=== PATIENT | female | born 1940 | race Caucasian/White ===

== ENCOUNTER 2017-06-17 09:00 | Emergency (ER) | payer OTHER ==
[~2017-06-17] VITALS: Ht 152.4 cm; Wt 62.6 kg
[~2017-06-17 09:00] MED LIST: ACID CONTROL150 MG; ADULT ASPIRIN81 MG; ANASTROZOLE1 MG; ATENOLOL25 MG; LOSARTAN-HCTZ1 EAC1; NORVASC5 MG; OSTERA TABLET1 EACH; PRAVASTATIN SOD40 MG; PRILOSEC40 MG
[2017-06-17] MEDS ORDERED: ANASTROZOLE1 MG (09:19)
[2017-06-17] MEDS ORDERED: PLAVIX75 MG (09:19)
[2017-06-17] MEDS ORDERED: ISOSORBIDE DINIT5 MG (09:20)
[2017-06-17] MEDS ORDERED: TOPROL XL25 MG (09:20)
[2017-06-17] MEDS ORDERED: LIPITOR40 MG (10:46)
[2017-06-17] MEDS ORDERED: RANEXA500 MG (10:46)
[2017-06-17] MEDS ORDERED: RANEXA500 MG PO (20:23)
[2017-06-17] MEDS ORDERED: ANASTROZOLE1 MG PO (20:23)
[2017-06-17] MEDS ORDERED: HYZAAR 100-12.1 EACH PO (20:23)
[2017-06-17] MEDS ORDERED: PLAVIX75 MG PO (20:23)
[2017-06-17] MEDS ORDERED: METOPROLOL SUCC25 MG PO (20:23)
[2017-06-17] MEDS ORDERED: ASPIRIN81 MG PO (20:23)
[2017-06-17] MEDS ORDERED: LIPITOR40 MG PO (20:23)
[2017-06-17] MEDS ORDERED: NORVASC2.5 M1 PO (20:23)
[2017-06-17] MEDS ORDERED: ISOSORBIDE DINI30 MG PO (20:23)
== END 2017-06-17 20:54 | disposition home or self-care (01) ==
LOC: ER 09:00
DX: J18.9 Pneumonia, unspecified organism (principal); K29.70 Gastritis, unspecified, without bleeding; E87.1 Hypo-osmolality and hyponatremia

== ENCOUNTER → 2017-07-18 | Emergency (ER) | payer OTHER ==
[~2017-07-18] VITALS: Ht 160 cm; Wt 62.6 kg
[~2017-07-18] MED LIST changes: +ANASTROZOLE1 MG PO; +ASPIRIN81 MG PO; +HYZAAR 100-12.1 EACH PO; +ISOSORBIDE DINI30 MG PO; +ISOSORBIDE DINIT5 MG; +LIPITOR40 MG; +LIPITOR40 MG PO; +METOPROLOL SUCC25 MG PO; +NORVASC2.5 M1 PO; +PLAVIX75 MG; +PLAVIX75 MG PO; +RANEXA500 MG; +RANEXA500 MG PO; +TOPROL XL25 MG
== END | disposition home or self-care (01) ==
LOC: ER 12:21
DX: K29.00 Acute gastritis without bleeding (principal)